=== PATIENT | female | born 1980 | race Hispanic/Latino ===

== ENCOUNTER 2017-02-15 20:13 | Emergency (ER) | payer OTHER ==
[~2017-02-15] VITALS: Ht 162.6 cm; Wt 71.4 kg
[2017-02-15 23:20] VITALS: BP 122/74
== END 2017-02-15 23:21 | disposition home or self-care (01) ==
LOC: EME 20:13
DX: G43.909 Migraine, unspecified, not intractable, without status migrainosus (principal)
CPT/HCPCS: 99281; 99285; J1200; J1885; J2765; J7030

== ENCOUNTER 2017-12-20 02:44 | Emergency (ER) | payer OTHER ==
[~2017-12-20] VITALS: Ht 162.6 cm; Wt 75.5 kg
[2017-12-20 03:05] LABS: HEMATOCRIT 34.6 % (36.0-46.0); HEMOGLOBIN 11.2 G/DL (11.9-15.5); MCH 26.9 PG (29.0-34.0); MCHC 32.4 G/DL (30.0-36.0); PLATELET COUNT 202 K/uL (156-360); RBC DIS.WIDTH-CV 13.4 % (11.8-14.6); RBC DIS.WIDTH-SD 40.4 % (39-53); RED BLOOD COUNT 4.17 M/uL (3.80-5.20); WHITE BLOOD COUNT 7.8 K/uL (4.1-10.2)
[2017-12-20 03:18] LABS: ALBUMIN 3.8 g/dL (3.2-4.8); CHLORIDE 110 mEq/L (99-109); POTASSIUM 4.2 mEq/L (3.7-5.4); SODIUM 142 mEq/L (136-147)
[2017-12-20 03:20] LABS: GLUCOSE 102 mg/dL (70-99)
[2017-12-20 03:21] LABS: TOTAL PROTEIN 6.3 g/dL (6.4-8.3)
[2017-12-20 03:24] LABS: ALKALINE PHOSPHATASE 76 IU/L (3-129); CREATININE 0.7 mg/dL (0.6-1.3); GFR ESTIMATE (CALCULATED) > 59 mL/min/
[2017-12-20 03:25] LABS: UREA NITROGEN (BUN) 11 mg/dL (9-23)
[2017-12-20 03:26] LABS: AST (GOT) 15 IU/L (2-34)
[2017-12-20 03:27] LABS: ALT (GPT) 10 IU/L (3-49)
[2017-12-20 03:28] LABS: LIPASE 8 U/L (1.0-51.0)
[2017-12-20 03:35] LABS: QUANTITATIVE HCG < 4.0 MIU/ML
[2017-12-20 05:18] LABS: TROP-I INTERPRETATION NEGATIVE; TROPONIN-I < 0.01 ng/mL (0.0-0.30)
[2017-12-20 05:59] LABS: APPEARANCE CLEAR ((CLEAR)); BILIRUBIN NEGATIVE; BLOOD SMALL; COLOR YELLOW ((YELLOW)); GLUCOSE (STRIP) NEGATIVE; KETONES NEGATIVE; LEUKOCYTES NEGATIVE; NITRITE POSITIVE; PROTEIN (STRIP) NEGATIVE; SPECIFIC GRAVITY 1.014 (1.000-1.030); UROBILINOGEN 0.2 MG/DL (0.2-1.0)
[2017-12-20 06:10] LABS: BACTERIA NONE SEEN /HPF; EPITHELIAL CELLS RARE /HPF; MUCUS TRACE /LPF; RED BLOOD CELLS 0-5 /HPF (0-5); UCUL ADDED? NO; WHITE BLOOD CELLS 0-5 /HPF (0-5)
[2017-12-20 06:28] VITALS: BP 104/63
== END 2017-12-20 06:29 | disposition home or self-care (01) ==
LOC: EME → EDBD 02:44 → EME 02:44
PROVIDERS: Emergency Medicine
DX: K52.9 Noninfective gastroenteritis and colitis, unspecified (principal)
CPT/HCPCS: 80053; 81003; 83690; 84484; 84702; 85027; 93005; 99281; 99284; J2405; J7030